=== PATIENT | male | born 1940 | race Caucasian/White ===

== ENCOUNTER 2017-08-31 12:03 | Outpatient (CLI) | payer MEDICARE, OTHER ==
[2017-08-31] MEDS ORDERED: Iopamidol 370 76% 100 ML VIAL ONE (14:03)
--- NOTE | 2017-08-31 14:12 | CT ---
CT ANGIO NECK: HISTORY: Carotid stenosis. The history obtained by the technologist indicates an outside Doppler study showed carotid stenosis. COMPARISON: There are no comparison studies available. TECHNIQUE: Multiple axial tomograms obtained through the neck with IV enhancement, in the arterial phase, follow ing an angio protocol, with multiplanar reconstruction and 3D post processing. FINDINGS: No significant stenosis seen at the origin of the arch vessels. The left common carotid artery is unremarkable. Prominent calcification is seen at the left bulb and proximal ICA. This plaque shows irregular calci fication and does produce significant stenosis at the origin of the left internal carotid artery. Th e degree of stenosis within this area of irregular calcified plaque is estimated at 50% to 60% diamet er, according to NASCET criteria, best appreciated on the coronal imaging. The right common carotid artery is occluded. There is reconstitution of the right bulb and ICA, pres umably due to collaterals from the right external carotid. There is dense calcification in the proxi mal right ICA with severe stenosis. The right ICA above the bulb is small but is patent to the skull base, and portions of the intracranial internal carotid arteries are visualized and are patent bilat erally. The vertebral arteries are patent and appear unremarkable. Review of soft tissues show asymmetry at the level of the left piriform sinus and the hypopharynx. T here is some mucosal prominence at this location of the hypopharynx. A mucosal lesion on the left ca nnot be excluded. This should be evaluated by ENT. IMPRESSION: 1. Occlusion of the right common carotid artery. There is reconstitution of the right bulb, apparen tly from collaterals from the external carotid, which probably reconstitutes the meningeal vessels. Dense calcification at the origin of the right internal carotid with severe stenosis. A small right internal carotid artery is present and is patent to the skull base. 2. There is evidence of hemodynamically significant stenosis at the origin of the left internal rome tid artery due to irregularly calcified plaque. 3. Soft tissue asymmetry in the hypopharynx, involving the left piriform sinus. There is suggestion of a mucosal prominence at this level, and a mucosal lesion cannot be excluded. Recommend this area be evaluated by ENT. CODE T POS: [facility]
== END 2017-08-31 12:04 | disposition home or self-care (01) ==
LOC: CT 12:03
PROVIDERS: ATTEND Internal Medicine Cardiovascular Disease
DX: I65.23 Occlusion and stenosis of bilateral carotid arteries (principal); J39.2 Other diseases of pharynx
CPT/HCPCS: 70498

== ENCOUNTER 2018-01-17 09:01 | Inpatient (IN) | payer MEDICARE, OTHER ==
[2018-01-17] MEDS ORDERED: CEFAZOLIN/Water 2 GM/20 ML SYRINGE ONE (09:49)
[2018-01-17 09:52] LABS: #Eosinphils 0.1 thou/uL (0.0-0.7); #Lymphocytes 1.1 thou/uL (1.20-3.40); #Monocytes 0.6 thou/uL (0.11-0.59); #Neutrophils 4.3 thou/uL (1.40-6.50); %Basophils 0.4 % (0.0-1.0); %Eosinophils 1.2 % (0.0-10.0); %Lymphocytes 17.8 % (21.0-51.0); %Monocytes 10.2 % (0.0-10.0); %Neutrophils 70.4 % (42.0-75.0); Hemoglobin 12.9 g/dL (14.0-18.0); Mean Corpuscular HGB CONC 33.1 g/dL (32.0-36.0); Mean Corpuscular Hemoglobin 32.2 pg (27.0-31.0); Mean Corpuscular Volume 97.3 fl (80.0-94.0); Mean Platelet Volume 7.1 fL (7.4-10.4); Platelet Count 311 thou/uL (130-400); RBC Distribution Width 12.5 % (11.5-14.5); White Blood Cell (WBC) Count 6.2 thou/uL (4.8-10.8)
[2018-01-17 10:08] LABS: Anion Gap 13 mmol/L (10-20); BUN (Urea Nitrogen) 12 mg/dL (8.4-25.7); Calc. Creatinine Clearance 98 mL/min (70-130); Calcium 9.3 mg/dL (7.8-10.44); Carbon Dioxide 25 mmol/L (23-31); Chloride 97 mmol/L (98-107); Estimated GFR-MDRD 88; Glucose 107 mg/dL (83-110); Potassium 3.9 mmol/L (3.5-5.1); Sodium 131 mmol/L (136-145)
--- NOTE | 2018-01-17 10:50 | HP ---
HISTORY OF PRESENT ILLNESS: This is a 77-year-old gentleman who was seen in the office about 2 month s ago after being found to have a carotid bruit by nurse practitioner in [place]. CTA showed a hig h grade left internal carotid artery stenosis with a proximal right common carotid occlusion with rec onstitution of the ECA ICA with a high grade right ICA lesion. He has had no symptoms to suggest a T IA or stroke. He has no chest pain, cough, shortness of breath with exertion. He has no claudicatio n, dizziness. 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 He is . He lives with his and dogs and remains active around his place. MEDICATIONS: Doxazosin 4 mg daily, amlodipine 2.5 a day, Lasix 40 a day, quinapril 40 a day and I read ve suggested he begin an 81 mg aspirin a day. PAST MEDICAL HISTORY: Cellulitis and abscess of his face, hypertension, carotid stenosis. PAST SURGICAL HISTORY: Hernia repair. PHYSICAL EXAMINATION: VITAL SIGNS: Heart rate 100, blood pressure 140/80, height 6 feet, weight 206. 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 CARDIAC: Regular rate and rhythm. No murmurs. LUNGS: Clear to auscultation. ABDOMEN: Soft, nontender, nondistended. EXTREMITIES: No edema with palpable femoral, popliteal, and posterior tibial pulses. NEUROLOGIC: Intact. PLAN: The plan at this time is for left carotid endarterectomy. Informed consent has been obtained.
[2018-01-17] MEDS ORDERED: Heparin 5,000 UNITS/ML VIAL ONE (10:52)
[2018-01-17] MEDS ORDERED: Protamine Sulfate 50 MG/5 ML VIAL ONE (10:52)
[2018-01-17] MEDS ORDERED: Midazolam HCl 2 mg/2 ml Vial ONE (11:02)
[2018-01-17] MEDS ORDERED: Fentanyl 100 MCG/2 ML VIAL ONE (11:02)
--- NOTE | 2018-01-17 11:39 | EKG ---
Test Reason : PREOP Blood Pressure : / mmHG Vent. Rate : 087 BPM Atrial Rate : 087 BPM P-R Int : 138 ms QRS Dur : 094 ms QT Int : 384 ms P-R-T Axes : 065 050 085 degrees QTc Int : 462 ms Normal sinus rhythm Increased R/S ratio in V1, consider early transition or posterior infarct Abnormal ECG No previous ECGs available Confirmed by DR. Russ GUERRERO ([id number]) on 01/17/2018 11:39:11 AM Referred By: DIMAS Confirmed By:DR. Russ GUERRERO
[2018-01-17] MEDS ORDERED: Bupivacaine/Epinephrine 0.25% 30 ML VIAL ONE (12:29)
[2018-01-17] MEDS ORDERED: Sodium Chloride 0.9% 1,000 ML IV SCH (13:06)
[2018-01-17] MEDS ORDERED: Promethazine HCl 25 MG/ML VIAL IM PRN (13:06)
[2018-01-17] MEDS ORDERED: Phenylephrine 10 MG/NS 250 ML 250 ML IVPB PRN (13:06)
[2018-01-17] MEDS ORDERED: Ondansetron HCl/PF 4 MG/2 ML Vial IVP PRN (13:06)
[2018-01-17] MEDS ORDERED: hydrALAZINE 20 MG/ML VIAL SLOW IVP PRN (13:06)
[2018-01-17] MEDS ORDERED: Fentanyl 100 MCG/2 ML VIAL SLOW IVP PRN ×2 (13:06)
[2018-01-17] MEDS ORDERED: HYDROcodone/Acetaminophen 5/325 mg Tablet PO PRN ×2 (13:06)
[2018-01-17] MEDS ORDERED: Acetaminophen 325 MG TAB PO PRN (13:06)
--- NOTE | 2018-01-17 13:34 | OP ---
DATE OF SERVICE: 01/17/2018 PREOPERATIVE DIAGNOSIS: Left carotid stenosis, right carotid occlusion. PROCEDURE: Left carotid endarterectomy with bovine patch angioplasty. SURGEON: Moe Voss M.D. ANESTHESIA: General. ESTIMATED BLOOD LOSS: Minimal. PROCEDURE IN DETAIL: After adequate anesthesia had been obtained, the patient was prepped and draped . Ultrasound had been used to guide the location of the incision, which was carried out. The facial vein was ligated and divided x2. Dissection was then carried out identifying and avoiding the hypog lossal nerve. Following 7500 units of heparin with good ACT level, arteriotomy was performed and the patient's critical stenosis was quite discrete although the plaque did extend cephalad for about a 1 .5 cm. A 14-Bermudian shunt was placed with fair back bleeding. Endarterectomy was then performed with nice tapering distally. The area was thoroughly irrigated and after removing any loose debris, a brittany vine patch was used to close the arteriotomy. Prior to completing the suture line, the shunt was rem rosie, vessels back flushed and forward flushed and then flow was restored up the external and then in ternal carotid artery. Heparin was partially reversed with protamine and after obtaining good hemost asis, the wound was irrigated and closed in layers.
[2018-01-17 14:18] VITALS: BMI 27.1
[2018-01-17] MEDS ORDERED: ePHEDrine/0.9% NaCl/PF SYRINGE 50 mg/10 ml ONE (15:18)
[2018-01-17] MEDS ORDERED: PHENYLEPHRINE-NS 100 MCG/ML 10 ML SYRINGE ONE (15:18)
[2018-01-17] MEDS ORDERED: Lidocaine 1% PF 5 ML VIAL ONE (15:18)
[2018-01-17] MEDS ORDERED: PROPOFOL 200 MG/20 ML VIAL ONE (15:18)
[2018-01-17] MEDS ORDERED: Glycopyrrolate 0.2 MG/ML 5 ML SYRINGE ONE (15:18)
[2018-01-17] MEDS ORDERED: Heparin 10,000 UNITS/ 10 ML VIAL ONE (15:18)
[2018-01-17] MEDS: CEFAZOLIN/Water 2 GM/20 ML SYRINGE SLOW IVP SCH (17:23)
[2018-01-17 22:20] VITALS: BP 162/76
[2018-01-18] MEDS: CEFAZOLIN/Water 2 GM/20 ML SYRINGE SLOW IVP SCH ×2 (01:11→08:43)
--- NOTE | 2018-01-18 06:48 | DIS ---
DATE OF ADMISSION: 01/17/2018 DATE OF DISCHARGE: 01/18/2018 HOSPITAL COURSE: The patient was admitted for elective left carotid endarterectomy for a severe sten osis with a known right carotid occlusion. His postoperative course was uneventful. He will be disc harged on his home medications and I have given him a prescription for Lovastatin 20 mg at bedtime. He will follow up with me in about 3 weeks and we will repeat his carotid ultrasound in about 6 month s. Discharge and follow up instructions have been given.
[2018-01-18 07:48] VITALS: TEMP 98.2
== END 2018-01-18 09:54 | disposition home or self-care (01) | DRG 39 ==
LOC: EDBD → SURG A 09:18 → CCU 14:31
PROVIDERS: ADMIT Thoracic Surgery (Cardiothoracic Vascular Surgery); ATTEND Thoracic Surgery (Cardiothoracic Vascular Surgery)
PROC: 03CJ0ZZ Extirpation of Matter from Left Common Carotid Artery, Open Approach (ICD-10-PCS; principal; 2018-01-17)
PROC: 03UJ0KZ Supplement Left Common Carotid Artery with Nonautologous Tissue Substitute, Open Approach (ICD-10-PCS; 2018-01-17)
DX: I65.29 Occlusion and stenosis of unspecified carotid artery (principal); I10 Essential (primary) hypertension; Z79.899 Other long term (current) drug therapy; Z79.82 Long term (current) use of aspirin
CPT/HCPCS: 36415; 80048; 85025; 93005; 93010; A4216; J0360; J1642; J1644; J2001; J2250; J2370; J2704; J2720; J3010; J7050

== ENCOUNTER 2024-03-22 12:49 | Outpatient (CLI) | payer OTHER ==
[2024-03-22] MEDS ORDERED: Iopamidol 370 76% 100 ML VIAL ONE (15:50)
== END 2024-03-22 12:50 | disposition home or self-care (01) ==
LOC: CT 12:49
PROVIDERS: ATTEND Student in an Organized Health Care Education/Training Program
DX: I65.29 Occlusion and stenosis of unspecified carotid artery (principal)
CPT/HCPCS: 70498; 82565; Q9967